=== PATIENT | female | born 1955 | race Caucasian/White ===

== ENCOUNTER → 2016-06-27 | Outpatient (CLI) | payer OTHER ==
[~2016-06-27] VITALS: Ht 154.9 cm; Wt 71.9 kg
[~2016-06-27] MED LIST: ALT/25 PO; ASPI325T39 PO; ATOR-24 PO; CARV3.122 PO; PRAS1TAB6 PO
[2016-06-27 14:54] VITALS: BP 115/76; PULSE 75; Ht 154.9 cm; Wt 71.9 kg
== END | disposition home or self-care (01) ==
LOC: C.NEUR 14:07
PROVIDERS: ATTEND Physician Assistant
DX: G47.30 Sleep apnea, unspecified (principal)

== ENCOUNTER → 2017-01-05 | Outpatient (CLI) | payer OTHER ==
[~2017-01-05] VITALS: Ht 154.9 cm; Wt 74.4 kg
[2017-01-05 13:50] VITALS: BP 113/80; PULSE 81; Ht 154.9 cm; Wt 74.4 kg
== END | disposition home or self-care (01) ==
LOC: C.NEUR 13:30
PROVIDERS: ATTEND Physician Assistant
DX: G47.30 Sleep apnea, unspecified (principal); I25.10 Atherosclerotic heart disease of native coronary artery without angina pectoris

== ENCOUNTER → 2017-10-19 | Outpatient (CLI) | payer OTHER ==
[~2017-10-19] VITALS: Ht 154.9 cm; Wt 74.5 kg
[2017-10-19 16:28] VITALS: BP 113/70; PULSE 79; Ht 154.9 cm; Wt 74.5 kg
== END | disposition home or self-care (01) ==
LOC: C.NEUR 15:05
PROVIDERS: ATTEND Internal Medicine Pulmonary Disease
DX: G47.33 Obstructive sleep apnea (adult) (pediatric) (principal)